=== PATIENT | male | born 1955 | race Caucasian/White ===

== ENCOUNTER 2025-01-07 09:29 | Emergency (ER) | payer BC, MEDICARE ==
[~2025-01-07] VITALS: Ht 177.8 cm; Wt 90.0 kg
[2025-01-07 09:42] VITALS: TEMP 97.8
[2025-01-07] MEDS ORDERED: LEVO75TA4 PO (09:44)
[2025-01-07] MEDS ORDERED: OMEP40CA5 PO (09:44)
[2025-01-07] MEDS ORDERED: LISI40TA10 PO (09:44)
[2025-01-07] MEDS ORDERED: AMLO1TAB24 PO (09:44)
[2025-01-07] MEDS ORDERED: HYDR-3363 PO (09:44)
[2025-01-07 10:40] LABS: BASO # 0.0 10^3/uL (0.0-0.2); BASO % 0.2 % (0.0-1.0); EOS # 0.0 10^3/uL (0.0-0.5); EOS % 0.6 % (0.0-3.0); LYMPH # 0.8 10^3/uL (1.5-5.0); LYMPH % 12.3 % (24.0-44.0); MONO # 0.7 10^3/uL (0.0-0.8); MONO % 11.5 % (2.0-8.0); NEUTROPHILS # 4.8 10^3/uL (1.5-8.5); NEUTROPHILS % 74.2 % (36.0-66.0); PLATELET COUNT, AUTOMATED 164 10^3/uL (150-450)
[2025-01-07] MEDS ORDERED: HOME MED LIST COMPLETE! XX SCH (10:45)
[2025-01-07 11:02] LABS: ETHYL ALCOHOL (ETHANOL) < 0.003 % (0.000-0.010)
[2025-01-07 11:03] LABS: ALT/SGPT 35 U/L (7.0-40); AST/SGOT 21 U/L (<34); CALCIUM LEVEL 9.3 MG/DL (8.3-10.6); CARBON DIOXIDE LEVEL 23 MMOL/L (20-31); CHLORIDE LEVEL 99 MMOL/L (98-107); CREATININE FOR GFR 0.62 MG/DL (0.70-1.30); GLOMERULAR FILTRATION RATE > 90.0 (>42); POTASSIUM SERUM 4.4 MMOL/L (3.5-5.1); SODIUM LEVEL 132 MMOL/L (136-145)
[2025-01-07 12:34] VITALS: BP 140/71; O2SAT 97
== END 2025-01-07 13:01 | disposition home or self-care (01) ==
LOC: M ED 09:29
DX: R53.1 Weakness (principal); F10.10 Alcohol abuse, uncomplicated; I10 Essential (primary) hypertension; Z79.899 Other long term (current) drug therapy